=== PATIENT | female | born 2000 | race Caucasian/White ===

== ENCOUNTER 2019-03-23 15:36 | Emergency (ER) | payer SELFPAY ==
--- NOTE | 2019-03-23 15:45 | NUR ---
Registration staff reports seeing pt walk out approx 10 min after checking in and has not seen pt come back.
== END 2019-03-23 15:46 | disposition left against medical advice (07) ==
LOC: EDUNIT# 15:36 → ER 15:37
DX: S80.11XA Contusion of right lower leg, initial encounter (principal); X58.XXXA Exposure to other specified factors, initial encounter